=== PATIENT | male | born 1975 | race Caucasian/White ===

== ENCOUNTER 2024-03-12 12:35 | Inpatient (IN) | payer OTHER ==
[~2024-03-12] VITALS: Ht 180.3 cm; Wt 124.9 kg
--- NOTE | 2024-03-12 12:58 | NUR ---
DR PERES AT BEDSIDE, EVALUATING PT
[2024-03-12 13:07] VITALS: BP_SYST 137; PULSE 91; RESP 18; TEMP 97.6; O2SAT 99
[2024-03-12 13:45] LABS: BASOPHILS # (AUTO) 0.1 K/uL (0.0-0.2); BASOPHILS % (AUTO) 0.4 % (0.0-2.0); EOSINOPHILS # (AUTO) 0.2 K/uL (0.0-0.4); HEMATOCRIT 38.5 % (36-54); HEMOGLOBIN 12.9 g/dL (14.0-18.0); LYMPHOCYTES # (AUTO) 1.4 K/uL (1.0-5.5); LYMPHOCYTES % (AUTO) 8.8 % (20.5-51.5); MEAN CORPUSCULAR HEMOGLOBIN 30 pg (27-31); MEAN CORPUSCULAR HGB CONC 34 % (32-36); MEAN CORPUSCULAR VOLUME 89 fL (79.0-98.0); MONOCYTES # (AUTO) 0.9 K/uL (0.0-1.0); NEUTROPHILS # (AUTO) 13.1 K/uL (1.8-7.7); NEUTROPHILS % (AUTO) 83.8 % (40.0-70.0); PLATELET COUNT (AUTO) 276 K/uL (130-430); RED BLOOD CELL COUNT(AUTO) 4.31 MIL/uL (4.2-6.2); RED CELL DISTRIBUTION WIDTH 13.8 % (9.0-15.0); WHITE BLOOD COUNT (AUTO) 15.6 K/uL (4.8-10.8)
[2024-03-12] MEDS: MORPHINE 4 MG INJ. 4 MG/ML VIAL IVP ONE (14:08)
[2024-03-12 14:13] LABS: ALBUMIN 3.5 g/dL (3.4-4.8); BILIRUBIN,DIRECT 0.1 mg/dL (0.0-0.3); CREATININE 1.02 mg/dL (0.55-1.30); POTASSIUM 3.7 mmol/L (3.5-5.1); TOTAL BILIRUBIN 0.4 mg/dL (0.0-1.0); TOTAL PROTEIN, SERUM 7.4 g/dL (6.4-8.3)
--- NOTE | 2024-03-12 14:24 | NUR ---
DR MORALES (SURGEON) AT BEDSIDE, EVALUATING PT
--- NOTE | 2024-03-12 14:33 | NUR ---
SURGEON at bedside examining patient.
--- NOTE | 2024-03-12 14:36 | NUR ---
DR MORALES (GEN SURG) STATING HE WILL SCHEDULE FOR LAP APPENDECTOMY. PT EDUCATED ON PROCEDURE BY SURGEON AND PT VERBALLY CONSENTING. CONSENT FORM TO BE COMPLETED.
--- NOTE | 2024-03-12 14:44 | NUR ---
Admit bed requested Patient will be admitted to care of Dr. DÍAZ. Admitted to MED SURG unit. Diagnosis ACUTE APPENDICITIS Inpatient (Yes or No) YES Observation (Yes or No) NO Orientation concerns or request close to nursing station (Yes or No) NO Covid Status NO On vent or bipap NO Isolation requirements NO Needs a sitter NO From Home (Yes or if No enter name of facility) YES Requires Dialysis (Yes or No) NO Med Rec Completed (Yes of No) YES
[2024-03-12] MEDS ORDERED: D5/0.45 NS 1,000 ML IV SCH (14:45)
[2024-03-12] MEDS ORDERED: LEVO175T7 PO (14:46)
[2024-03-12] MEDS ORDERED: LISI30TA36 PO (14:46)
[2024-03-12] MEDS ORDERED: HYDR25TA4 PO (14:46)
[2024-03-12] MEDS ORDERED: TAMS0.4C96 PO (14:46)
[2024-03-12] MEDS ORDERED: FLUT1BLS INH (14:46)
[2024-03-12] MEDS ORDERED: MONT-40 PO (14:46)
--- NOTE | 2024-03-12 14:47 | NUR ---
Medication reconciliation completed with information provided by PATIENT. Any prior medication reconciliation on file was reviewed and corrected.
[2024-03-12] MEDS: MORPHINE 2 MG/ML INJ. SYRINGE IVP ONE (14:52)
[2024-03-12] MEDS: NACL 0.9% 1,000 ML IV ONE (14:52)
--- NOTE | 2024-03-12 15:25 | NUR ---
# 18 gauge angiocath placed to L WRIST. Use of asceptic technique. Opsite placed over site. Blood return noted. Blood for lab drawn from site. Flushed with 10 cc of normal saline. No evidence of infiltration noted.
[2024-03-12 15:27] LABS: PROTHROMBIN TIME 10.4 SECS (9.5-12.5)
[2024-03-12] MEDS ORDERED: PIPERACILLIN/TAZOBACTAM 3.375 GM/VIAL (ZOSYN) IV ONE (15:27)
[2024-03-12] MEDS: PIPERACILLIN/TAZO 3.375 GM in NS 50 ML IV ONE (15:42)
[2024-03-12] MEDS: HYDROmorphone 2 MG/ML VIAL ONE (15:46)
[2024-03-12] MEDS ORDERED: ROCURONIUM BROMIDE 10 MG/ML (ZEMURON) ONE (15:50)
[2024-03-12] MEDS ORDERED: LR 1,000 ML IV.SOLN IV ONE (15:50)
[2024-03-12] MEDS ORDERED: GLYCOPYRROLATE 0.2 MG/ML VIAL ONE (15:50)
[2024-03-12] MEDS ORDERED: BUPIVACAINE /EPINEPHRINE/PF 0.25% 30 ML VIAL ONE (15:50)
[2024-03-12] MEDS ORDERED: WATER FOR IRRIGATION,STERILE 1,000 ML IRRIG.SOLN IR ONE (15:50)
[2024-03-12] MEDS ORDERED: ONDANSETRON HCL 4 MG/2 ML VIAL ONE (15:50)
[2024-03-12] MEDS ORDERED: METOCLOPRAMIDE HCL 10 MG/2 ML VIAL ONE (15:50)
[2024-03-12] MEDS ORDERED: SEVOFLURANE 15 MIN GAS INH ONE (15:50)
[2024-03-12] MEDS ORDERED: NS IRRIG SOLN 1000 ML IR ONE (15:50)
[2024-03-12] MEDS ORDERED: DEXAMETHASONE SOD PHOSPHATE 4 MG/ML VIAL ONE (15:50)
[2024-03-12] MEDS ORDERED: PROPOFOL 200MG/ 20ML VIAL (DIPRIVAN) IV ONE (15:50)
[2024-03-12] MEDS ORDERED: SUCCINYLCHOLINE CHLORIDE 20 MG/ML(QUELICIN) ONE (15:50)
[2024-03-12] MEDS ORDERED: NEOSTIGMINE METHYLSULFATE 1 MG/ML, 10 ML VIAL ONE (15:50)
--- NOTE | 2024-03-12 15:50 | NUR ---
REPORT GIVEN TO RN ZANDER WITH OPPORTUNITIES FOR QUESTIONS AND ANSWERS PROVIDED. CONTINUATION OF CARE ASSUMED.
--- NOTE | 2024-03-12 16:00 | NUR ---
PT TAKEN TO OR FOR LAP APPY VIA [facility], ACCOMPANIED BY OR STAFF. PT NO LONGER IN ER.
[2024-03-12] MEDS ORDERED: NALOXONE HCL 0.4 MG/ML AMP (NARCAN) IVP PRN ×2 (16:45)
[2024-03-12] MEDS ORDERED: METOCLOPRAMIDE HCL 10 MG/2 ML VIAL IVP PRN (16:45)
[2024-03-12] MEDS ORDERED: HYDROmorphone 1 MG/ML INJ. CARTRIDGE IVP PRN ×2 (16:45)
[2024-03-12] MEDS ORDERED: ONDANSETRON HCL 4 MG/2 ML VIAL IVP PRN ×2 (16:45→17:30)
[2024-03-12] MEDS ORDERED: NACL 0.9% 1,000 ML IV SCH (17:45)
[2024-03-12] MEDS: HYDROmorphone 1 MG/ML INJ. CARTRIDGE ONE ×3 (17:57→18:43)
[2024-03-12] MEDS: HYDROmorphone 1 MG/ML INJ. CARTRIDGE IVP ONE ×3 (18:00→18:47)
[2024-03-12] MEDS ORDERED: IPRATROPIUM/ALBUTEROL SULFATE 3 ML AMPUL.NEB (DUONEB) INH PRN (18:45)
[2024-03-12] MEDS ORDERED: cloNIDine HCL 0.1 MG TABLET PO PRN (18:45)
--- NOTE | 2024-03-12 19:35 | NUR ---
ADMISSION NOTE 48 Y/O MALE,ADMITTED FROM OR,WITH Dx LAPAROSCOPY APPENDECTOMY,PT AWAKE,ALERT,ORIENTED,ROOM AIR,SURGICAL ABDOMINAL DRESSING CLEAN AND DRY WITH ONE WALKER, PT ACCOMPANIED BY RR TEAM AND PT ,ORIENTATION TO THE ROOM AND HOSPIYAL,CALL LIGHT IN REACH,PT TOLD TO CALL FOR ASSISTANCE.
[2024-03-12 19:37] VITALS: BP_SYST 133; PULSE 85; RESP 16; TEMP 98.3
[2024-03-12 19:45] VITALS: O2SAT 97
--- NOTE | 2024-03-12 20:05 | NUR ---
paged doctor ml
[2024-03-12] MEDS: MORPHINE 2 MG/ML INJ. SYRINGE IVP PRN (20:26)
--- NOTE | 2024-03-12 20:40 | NUR ---
2nd page for ml
--- NOTE | 2024-03-12 21:03 | NUR ---
3rd page ml
--- NOTE | 2024-03-12 21:22 | NUR ---
4th page ml
--- NOTE | 2024-03-12 21:36 | NUR ---
5th page for ml
[2024-03-12] MEDS: PIPERACILLIN/TAZO 3.375 GM in D5W 50 ML IV SCH (22:09)
[2024-03-12] MEDS: KETOROLAC TROMETHAMINE 30 MG VIAL IVP PRN (22:36)
[2024-03-12] MEDS: MONTELUKAST 10 MG TABLET PO SCH (23:26)
[2024-03-12] MEDS: PIPERACILLIN/TAZO 4.5 GM in D5W 100 ML IV SCH (23:51)
[2024-03-12] MEDS: D5LR 1,000 ML IV SCH (23:52)
[2024-03-13] VITALS (11 sets, daily range): BP systolic 120–136; PULSE 67–85; RESP 16–20; TEMP 97–98.5; O2SAT 96–100
[2024-03-13] MEDS ORDERED: PIPERACILLIN/TAZO 4.5 GM in NS 100 ML IV SCH
[2024-03-13] MEDS: PIPERACILLIN/TAZOBACTAM 4.5 GM/VIAL (ZOSYN) IV ONE (00:01)
[2024-03-13] MEDS: HYDROmorphone 1 MG/ML INJ. CARTRIDGE IVP PRN (00:16)
[2024-03-13] MEDS: LEVOTHYROXINE SODIUM 0.15 MG TABLET PO SCH (06:34)
[2024-03-13] MEDS: IPRATROPIUM/ALBUTEROL SULFATE 3 ML AMPUL.NEB (DUONEB) INH SCH (07:24)
[2024-03-13 07:38] LABS: BASOPHILS % (AUTO) 0.1 % (0.0-2.0); EOSINOPHILS % (AUTO) 0.1 % (0.0-4.0); HEMATOCRIT 37.3 % (36-54); HEMOGLOBIN 12.5 g/dL (14.0-18.0); LYMPHOCYTES # (AUTO) 1.1 K/uL (1.0-5.5); LYMPHOCYTES % (AUTO) 6.5 % (20.5-51.5); MEAN CORPUSCULAR HEMOGLOBIN 30 pg (27-31); MEAN CORPUSCULAR HGB CONC 34 % (32-36); MEAN CORPUSCULAR VOLUME 89 fL (79.0-98.0); MONOCYTES # (AUTO) 0.9 K/uL (0.0-1.0); MONOCYTES % (AUTO) 5.6 % (1.7-9.3); NEUTROPHILS # (AUTO) 14.7 K/uL (1.8-7.7); NEUTROPHILS % (AUTO) 87.7 % (40.0-70.0); PLATELET COUNT (AUTO) 291 K/uL (130-430); RED CELL DISTRIBUTION WIDTH 13.8 % (9.0-15.0); WHITE BLOOD COUNT (AUTO) 16.8 K/uL (4.8-10.8)
[2024-03-13 07:51] LABS: ALBUMIN 2.9 g/dL (3.4-4.8); CALCIUM 8.6 mg/dL (8.4-11.0); CREATININE 1.02 mg/dL (0.55-1.30); TOTAL BILIRUBIN 0.5 mg/dL (0.0-1.0); TOTAL PROTEIN, SERUM 6.9 g/dL (6.4-8.3)
--- NOTE | 2024-03-13 08:00 | NUR ---
LATE ENTRY DUE TO PT CARE OPENING NOTES ASSUMED CARE . PT AWAKE . A/O X4 .CALL LIGHT IN REACH , BED LOW , LOCKED , ALARM ON . NOT IN PAIN . INCISION COVERED WITH DSG , WALKER DRAIN WITH PINKISH DRAIN. PLAN OF CARE EXPLAINED AND UNDERSTOOD WELL .
[2024-03-13] MEDS: TAMSULOSIN HCL 0.4 MG CAP PO SCH (09:21)
[2024-03-13] MEDS: LISINOPRIL 10 MG TABLET (PRINIVIL) PO SCH (09:21)
[2024-03-13] MEDS: HYDROCHLOROTHIAZIDE 25 MG TABLET (HCTZ) PO SCH (09:22)
--- NOTE | 2024-03-13 10:25 | NUR ---
DR MORALES ASSESSING PT AT BED SIDE
[2024-03-13] MEDS: D5LR 500 ML IV ONE (11:02)
--- NOTE | 2024-03-13 13:13 | NUR ---
CALL TO DR MORALES CLARIFIED WITH DIET ORDER . OK TO HAVE CLEAR LIQUIDS ., BUT NOT TO DRINK TOO MUCH WATER , JUST ONLY SIPS.
[2024-03-13] MEDS: LR 1,000 ML IV SCH (13:15)
--- NOTE | 2024-03-13 19:26 | NUR ---
CLOSING NOTES PRN PAIN MEDICATIONS GIVEN PERIODICALLY . AMBULATORY . HANDED OVER TO NT RN IN STABLE CONDITION
[2024-03-14] VITALS (10 sets, daily range): BP systolic 133–144; PULSE 82–98; RESP 18–20; TEMP 97–98; O2SAT 96–100
--- NOTE | 2024-03-14 04:21 | NUR ---
AT THE BEGINNING OF THE SHIFT PT IN THE ROOM,AWAKE,ALERT,NO C/O,CALL LIGHT IN REACH,IVF INFUSING. DURING THE SHIFT ADM ANALGESICS ORDERED,PT SLEEPING MOST OF THE
[2024-03-14 07:24] LABS: BASOPHILS # (AUTO) 0.1 K/uL (0.0-0.2); BASOPHILS % (AUTO) 0.7 % (0.0-2.0); EOSINOPHILS # (AUTO) 0.3 K/uL (0.0-0.4); EOSINOPHILS % (AUTO) 2.5 % (0.0-4.0); HEMATOCRIT 38.7 % (36-54); LYMPHOCYTES # (AUTO) 2.2 K/uL (1.0-5.5); LYMPHOCYTES % (AUTO) 19.1 % (20.5-51.5); MEAN CORPUSCULAR HEMOGLOBIN 30 pg (27-31); MEAN CORPUSCULAR HGB CONC 33 % (32-36); MEAN CORPUSCULAR VOLUME 89 fL (79.0-98.0); MONOCYTES # (AUTO) 0.8 K/uL (0.0-1.0); MONOCYTES % (AUTO) 7.1 % (1.7-9.3); NEUTROPHILS % (AUTO) 70.6 % (40.0-70.0); PLATELET COUNT (AUTO) 308 K/uL (130-430); RED BLOOD CELL COUNT(AUTO) 4.34 MIL/uL (4.2-6.2); WHITE BLOOD COUNT (AUTO) 11.3 K/uL (4.8-10.8)
[2024-03-14 07:29] LABS: CALCIUM 8.8 mg/dL (8.4-11.0); CREATININE 1.09 mg/dL (0.55-1.30); POTASSIUM 3.7 mmol/L (3.5-5.1)
--- NOTE | 2024-03-14 08:05 | NUR ---
OPENING NOTES: RECEIVED BEDSIDE SBAR FROM PM SHIFT NURSE, NO S/S OF ANY DISTRESS, NON LABOR BREATHING, BED AT LOW AND LOCKED POSITION CALL LIGHT IN REACH, ALL SAFETY AND FALL RISKS IN PLACE, WILL GIVE MEDS PER ORDERS.
[2024-03-14] MEDS: IPRATROPIUM/ALBUTEROL SULFATE 3 ML AMPUL.NEB (DUONEB) INH SCH (10:50)
[2024-03-14] MEDS ORDERED: LEVOTHYROXINE SODIUM 0.15 MG TABLET PO SCH (10:53)
--- NOTE | 2024-03-14 13:22 | NUR ---
Dietitian Recommendation If/when medically appropriate consider GI soft (low fiber/bland) Consider nutrition support if unable to advance diet in 1-3 days. Please refer to nutrition assessment for details. MS DONYA,ISMAEL Addendum: 03/14/24 at [address] Amended: Links added.
[2024-03-14] MEDS ORDERED: HYDR-3927 PO (15:35)
[2024-03-14] MEDS ORDERED: AUG875 PO (15:38)
[2024-03-14] MEDS ORDERED: LACT1TAB14 PO (15:40)
--- NOTE | 2024-03-14 19:45 | NUR ---
PT IN THE ROOM,SITTING IN A CHAIR,ALERT,ORIENTED,CALL LIGHT IN REACH,NO C/O,IVF INFUSING,ROOM AIR.
[2024-03-14] MEDS: PIPERACILLIN/TAZO 4.5 GM in D5W 100 ML IV ONE (19:56)
--- NOTE | 2024-03-14 23:15 | NUR ---
PT DISCHARGED HOME,D/C INSTRUCTIONS GIVEN TO PT AND PT ,AFTER THE INSTRUCTIONS AND SURGICAL WOUND AND WALKER CARE TEACHING GIVEN THEY HAVE NO FURTHER QUESTIONS,A COPY OF THE INSTRUCTIONS AND TEACHING GIVEN,PT WAS TAKEN IN A W/C TO THE FRONT OF THE HOSPITAL WHERE THE WAS WAITING WITH THEIR OWN TRANSPORTATION.
[2024-03-15] MEDS ORDERED: LEVOTHYROXINE SODIUM 0.025 MG TABLET PO SCH (07:00)
[2024-03-15] MEDS ORDERED: LEVOTHYROXINE SODIUM 0.15 MG TABLET PO SCH (07:00)
== END 2024-03-14 23:11 | disposition home or self-care (01) | DRG 853 ==
LOC: SED 12:35 → SMU 14:42
PROVIDERS: ADMIT Internal Medicine; ATTEND Internal Medicine
PROC: 0DTJ4ZZ Resection of Appendix, Percutaneous Endoscopic Approach (ICD-10-PCS; principal; 2024-03-12 15:56)
DX: A41.9 Sepsis, unspecified organism (principal); K35.32 Acute appendicitis with perforation, localized peritonitis, and gangrene, without abscess; K56.7 Ileus, unspecified; I10 Essential (primary) hypertension; N40.0 Benign prostatic hyperplasia without lower urinary tract symptoms; J45.909 Unspecified asthma, uncomplicated; F17.200 Nicotine dependence, unspecified, uncomplicated; E66.01 Morbid (severe) obesity due to excess calories; E03.9 Hypothyroidism, unspecified; Z79.899 Other long term (current) drug therapy; Z68.38 Body mass index [BMI] 38.0-38.9, adult
CPT/HCPCS: 36415; 80048; 80053; 80076; 83690; 85025; 85610; 85730; 87040; 88304; 94070; 94640; 94760; 99285; C1727; J0330; J1100; J1170; J1885; J2270; J2405; J2543; J2704; J2710; J2765; J3490; J7060; J7120